=== PATIENT | female | born 1990 | race Asian ===

== ENCOUNTER 2017-01-10 00:08 | Inpatient (IN) | payer SELFPAY ==
[~2017-01-10] VITALS: Ht 162 cm; Wt 82.6 kg
[2017-01-10] MEDS ORDERED: FERR-252 PO (02:38)
[2017-01-10] MEDS ORDERED: METHYLERGONOVINE 0.2 MG/ML AMP IM PRN ×2 (02:50→22:05)
[2017-01-10] MEDS ORDERED: CARBOPROST 250 MCG/ML AMP IM PRN (02:50)
[2017-01-10] MEDS ORDERED: OXYTOCIN 20 UNITS in LACTATED RINGERS 1,000 ML IV SCH (02:50)
[2017-01-10] MEDS ORDERED: PROMETHAZINE 25 MG/ML VIAL IVP PRN (02:50)
[2017-01-10] MEDS ORDERED: LACTATED RINGERS 500 ML IV ONE (02:50)
[2017-01-10] MEDS ORDERED: OXYTOCIN 10 UNITS/ML VIAL IM SCH (02:50)
[2017-01-10] MEDS ORDERED: NALBUPHINE HYDROCHLORIDE 10 MG/ML VIAL IVP PRN (02:50)
[2017-01-10] MEDS ORDERED: LACTATED RINGERS 1,000 ML IV SCH (02:50)
[2017-01-10 03:09] LABS: BASOPHILS # (AUTO) 0.1 K/uL (0.00-0.22); BASOPHILS % (AUTO) 1.7 % (0.0-2.0); EOSINOPHILS # (AUTO) 0.1 K/uL (0-0.4); EOSINOPHILS % (AUTO) 0.8 % (0.0-4.0); HEMATOCRIT 32.8 % (36-48); HEMOGLOBIN 10.8 g/dL (12.0-16.0); LYMPHOCYTES % (AUTO) 30.6 % (20.5-51.1); MEAN CORPUSCULAR HEMOGLOBIN 29 pg (27-31); MEAN CORPUSCULAR HGB CONC 33 g/dL (33-37); MEAN CORPUSCULAR VOLUME 89 fL (80-94); MONOCYTES # (AUTO) 0.4 K/uL (0.8-1.0); MONOCYTES % (AUTO) 6.6 % (1.7-9.3); NEUTROPHILS % (AUTO) 60.3 % (42.2-75.2); PLATELET COUNT (AUTO) 188 K/uL (140-450); RED BLOOD CELL COUNT(AUTO) 3.68 MIL/uL (4.20-5.40); RED CELL DISTRIBUTION WIDTH 12.9 % (11.6-13.7); WHITE BLOOD COUNT (AUTO) 6.6 K/uL (4.8-10.8)
[2017-01-10 03:12] LABS: APPEARANCE,URINE HAZY (CLEAR); BILIRUBIN,URINE NEGATIVE (NEGATIVE); BLOOD, URINE NEGATIVE (NEGATIVE); COLOR,URINE YELLOW (YELLOW); LEUKOCYTE ESTERASE ,URINE 2+ (NEGATIVE); NITRITE, URINE NEGATIVE (NEGATIVE); PH,URINE 6.5 (5.0-9.0); UGLUCOSE NEGATIVE (NEGATIVE)
[2017-01-10 03:25] LABS: POTASSIUM 3.8 mmol/L (3.5-5.1)
[2017-01-10 03:26] LABS: ALBUMIN 2.7 g/dL (3.4-5.0); ANION GAP 10.8 (8-16); CREATININE 0.7 mg/dL (0.6-1.3); TOTAL BILIRUBIN 0.3 mg/dL (0.0-1.0)
[2017-01-10 03:32] LABS: RBC,URINE 0-5 (RARE) /HPF (0-5)
[2017-01-10] MEDS ORDERED: AMPICILLIN 2,000 MG VIAL ONE (03:35)
[2017-01-10] MEDS ORDERED: MISOPROSTOL 25 MCG TAB ONE (03:46)
[2017-01-10] MEDS ORDERED: MISOPROSTOL 25 MCG TAB VG SCH (04:00)
[2017-01-10 04:24] VITALS: BP 117/81
[2017-01-10] MEDS ORDERED: AMPICILLIN 1,000 MG VIAL ONE ×3 (08:07→17:08)
[2017-01-10 13:34] LABS: RAPID PLASMA REAGIN NON-REACTIVE (Non Reactiv)
[2017-01-10] MEDS ORDERED: PROMETHAZINE 25 MG/ML VIAL ONE (13:44)
[2017-01-10] MEDS ORDERED: NALBUPHINE HYDROCHLORIDE 10 MG/ML VIAL ONE (13:45)
[2017-01-10] MEDS ORDERED: ROPIVACAINE 0.2%/NS PREMIX 250 ML EPI ONE (15:59)
[2017-01-10] MEDS ORDERED: OXYTOCIN 10 UNITS/ML VIAL ONE (20:45)
[2017-01-10] MEDS ORDERED: TEMAZEPAM 15 MG CAP PO PRN (22:05)
[2017-01-10] MEDS ORDERED: oxyCODONE/APAP 5/325 MG 1 TAB TAB PO PRN (22:05)
[2017-01-10] MEDS ORDERED: OXYTOCIN 10 UNITS/ML VIAL IM PRN (22:05)
[2017-01-10] MEDS ORDERED: MEASLES, MUMPS, AND RUBELLA 1 VIAL SQVAC PRN (22:05)
[2017-01-10] MEDS ORDERED: BENZOCAINE/MENTHOL 20%-0.5% 60 GM CAN TP PRN (22:05)
[2017-01-11] MEDS: IBUPROFEN 800 MG TAB PO PRN ×3 (02:21→14:34)
[2017-01-11 06:04] LABS: HEMATOCRIT 29.9 % (36-48); HEMOGLOBIN 9.8 g/dL (12.0-16.0)
--- NOTE | 2017-01-11 10:03 | NUR ---
PATIENT HAS BEEN SCREENED AND CATEGORIZED LOW NUTRITION RISK. PATIENT WILL BE SEEN WITHIN 7 DAYS OF ADMISSION. 01/16/[address]
[2017-01-11] MEDS: HYDROcodone/APAP 5/325 MG 1 TAB TAB PO PRN ×2 (17:56→22:06)
[2017-01-11] MEDS ORDERED: DOCUSATE SOD/SENNA 50/8.6 MG 1 TAB PO SCH (21:00)
[2017-01-11] MEDS ORDERED: INFLUENZA VIRUS VACCINE QUAD 0.5 ML SYR IMVAC SCH (22:00)
[2017-01-12] MEDS: IBUPROFEN 800 MG TAB PO PRN ×2 (04:24→11:02)
== END 2017-01-12 17:05 | disposition home or self-care (01) | DRG 775 ==
LOC: MLD 00:08 → MFCC 01-11 01:00
PROVIDERS: ADMIT Obstetrics & Gynecology; ATTEND Obstetrics & Gynecology
PROC: 10E0XZZ Delivery of Products of Conception, External Approach (ICD-10-PCS; principal; 2017-01-10)
PROC: 10907ZC Drainage of Amniotic Fluid, Therapeutic from Products of Conception, Via Natural or Artificial Opening (ICD-10-PCS; 2017-01-10)
PROC: 3E0P7VZ Introduction of Hormone into Female Reproductive, Via Natural or Artificial Opening (ICD-10-PCS; 2017-01-10)
PROC: 0W8NXZZ Division of Female Perineum, External Approach (ICD-10-PCS; 2017-01-10)
PROC: 00HU33Z Insertion of Infusion Device into Spinal Canal, Percutaneous Approach (ICD-10-PCS; 2017-01-10)
PROC: 3E0R3BZ Introduction of Anesthetic Agent into Spinal Canal, Percutaneous Approach (ICD-10-PCS; 2017-01-10)
DX: O99.824 Streptococcus B carrier state complicating childbirth (principal); O69.81X0 Labor and delivery complicated by cord around neck, without compression, not applicable or unspecified; Z37.0 Single live birth; Z3A.39 39 weeks gestation of pregnancy; Z28.21 Immunization not carried out because of patient refusal; Z83.3 Family history of diabetes mellitus
CPT/HCPCS: 36415; 51702; 80053; 81001; 85018; 85025; 86592; 86886; 86900; 86901; 87086; C1758; J0290; J2300; J2550; J2590; J2795; J7120